=== PATIENT | female | born 1975 | race Asian ===

== ENCOUNTER 2016-08-03 01:03 | Inpatient (IN) | payer SELFPAY ==
[~2016-08-03] VITALS: Ht 163 cm; Wt 79.4 kg
[2016-08-03] MEDS ORDERED: PNV-DHA1 SGL PO (01:21)
[2016-08-03] MEDS ORDERED: LACTATED RINGERS 1,000 ML IV SCH (01:21)
[2016-08-03] MEDS ORDERED: NALBUPHINE HYDROCHLORIDE 10 MG/ML VIAL IVP PRN (01:25)
[2016-08-03] MEDS ORDERED: CARBOPROST 250 MCG/ML AMP IM PRN (01:25)
[2016-08-03] MEDS ORDERED: OXYTOCIN 20 UNITS/LR PREMIX 1,000 ML IV PRN (01:25)
[2016-08-03] MEDS ORDERED: PROMETHAZINE 25 MG/ML VIAL IVP ONE ×3 (01:25→01:45)
[2016-08-03] MEDS ORDERED: METHYLERGONOVINE 0.2 MG/ML AMP IM PRN ×2 (01:25→22:05)
[2016-08-03 03:14] VITALS: BP 122/64
[2016-08-03] MEDS ORDERED: BUPIVACAINE 0.125%/NS PREMIX 250 ML ONE (03:39)
[2016-08-03] MEDS ORDERED: OXYTOCIN 20 UNITS/LR PREMIX 1,000 ML IV ONE (05:40)
--- NOTE | 2016-08-03 08:17 | NUR ---
PATIENT HAS BEEN SCREENED AND CATEGORIZED LOW NUTRITION RISK. PATIENT WILL BE SEEN WITHIN 7 DAYS OF ADMISSION. 08/09/[address]
[2016-08-03] MEDS ORDERED: OXYTOCIN 10 UNITS/ML VIAL ONE (11:29)
[2016-08-03] MEDS ORDERED: LIDOCAINE 1% 50 ML ONE (18:17)
[2016-08-03] MEDS ORDERED: CARBOPROST 250 MCG/ML AMP IM ONE (19:05)
[2016-08-03] MEDS ORDERED: ceFAZolin 1,000 MG VIAL ONE (19:05)
[2016-08-03] MEDS ORDERED: BENZOCAINE/MENTHOL 20%-0.5% 60 GM CAN TP PRN (22:05)
[2016-08-03] MEDS ORDERED: MEASLES, MUMPS, AND RUBELLA 1 VIAL SQVAC PRN (22:05)
[2016-08-03] MEDS ORDERED: IBUPROFEN 800 MG TAB PO PRN (22:05)
[2016-08-03] MEDS ORDERED: OXYTOCIN 10 UNITS/ML VIAL IM PRN (22:05)
[2016-08-03] MEDS ORDERED: WITCH HAZEL 40 PAD PACKAGE TP PRN (22:05)
[2016-08-03] MEDS ORDERED: TEMAZEPAM 15 MG CAP PO PRN (22:05)
[2016-08-03] MEDS ORDERED: oxyCODONE/APAP 5/325 MG 1 TAB TAB PO PRN (22:05)
[2016-08-04] MEDS ORDERED: ceFAZolin 1,000 MG VIAL ONE ×2 (02:58→10:54)
[2016-08-04] MEDS: HYDROcodone/APAP 5/325 MG 1 TAB TAB PO PRN ×3 (07:00→22:03)
[2016-08-04] MEDS ORDERED: INFLUENZA VIRUS VACCINE QUAD 0.5 ML SYR IMVAC SCH (10:20)
[2016-08-04] MEDS ORDERED: DOCUSATE SOD/SENNA 50/8.6 MG 1 TAB PO SCH (21:00)
== END 2016-08-05 15:40 | disposition home or self-care (01) | DRG 775 ==
LOC: MLD 01:03 → MFCC 21:35
PROVIDERS: ADMIT Obstetrics & Gynecology; ATTEND Obstetrics & Gynecology
PROC: 10907ZC Drainage of Amniotic Fluid, Therapeutic from Products of Conception, Via Natural or Artificial Opening (ICD-10-PCS; principal; 2016-08-02)
PROC: 10E0XZZ Delivery of Products of Conception, External Approach (ICD-10-PCS; 2016-08-02)
PROC: 0W8NXZZ Division of Female Perineum, External Approach (ICD-10-PCS; 2016-08-02)
PROC: 00HU33Z Insertion of Infusion Device into Spinal Canal, Percutaneous Approach (ICD-10-PCS; 2016-08-02)
PROC: 3E0R3CZ (ICD-10-PCS; 2016-08-02)
DX: O75.89 Other specified complications of labor and delivery (principal); Z3A.38 38 weeks gestation of pregnancy; Z37.0 Single live birth; O09.523 Supervision of elderly multigravida, third trimester